=== PATIENT | male | born 1980 | race African-American/Black ===

== ENCOUNTER 2018-01-16 10:07 | Outpatient (CLI) | END 2018-01-16 10:08 | disposition home or self-care (01) | LOC: CAR 10:07 | PROVIDERS: ATTEND Physician Assistant | DX: R07.9 Chest pain, unspecified (principal) | CPT/HCPCS: 93005; 93010 ==

== ENCOUNTER 2018-01-23 12:02 | Outpatient (CLI) ==
--- NOTE | 2018-01-23 13:17 | US ---
EXAM: Thyroid ultrasound. History: Goiter. Technique: Multiple sonographic images through the thyroid gland were obtained. Color duplex Dopple r was used to interrogate vascular flow. Findings: The right lobe of the thyroid measures 6.3 cm x 1.8 cm x 2.6 cm and is without discrete nodule identi fied. The thyroid isthmus measures 0.3 cm in thickness. The left lobe of the thyroid measures 5.2 cm x 1.7 cm x 2.5 cm and is without discrete nodule identif ied. No extrathyroidal masses are identified. The thyroid gland is not hypervascular. Impression: Mildly enlarged thyroid gland without nodules identified.
== END 2018-01-23 12:03 | disposition home or self-care (01) ==
LOC: RAD 12:02
PROVIDERS: ATTEND Physician Assistant
DX: E04.9 Nontoxic goiter, unspecified (principal)